=== PATIENT | male | born 1945 | race Caucasian/White ===

== ENCOUNTER → 2016-07-05 | Outpatient (CLI) | payer OTHER ==
[~2016-07-05] MED LIST: GADOBUTROL 10 ML VIAL IVP ONE
--- NOTE | 2016-07-05 17:36 | MR ---
MRI of the Brain(Without and With Contrast) Contrast: 6.5 mL intravenous Gadavist without complication. History: Melanoma restaging, on therapy. Known brain metastases. Comparison: April 07, 2016 Technique: Sagittal and axial T1-weighted images. Axial fast T2 2nd echo, GRE, diffusion and FLAIR im ages. Postgadolinium sagittal, axial and coronal images. Findings: The bilateral cerebellar lesions are both smaller. Enhancement of the left cerebellar lesio n is now 4 x 4 mm compared to prior 14 x 7.6 mm. The right cerebellar lesion now measures 20 x 12 mm compared to prior 28 x 18 mm. The 2 left hemispheric lesions are smaller: the left frontal lesion cur rently measuring 5 mm compared to prior 14 mm and the left temporal lesion currently is not associate d with any residual enhancement. On SWI images it now measures 11 mm max compared to prior 13 mm max no new metastases are identified. There is no midline shift or hydrocephalus. Impression: Continued improvement.
== END ==
LOC: FIMAGING 15:36
PROVIDERS: ATTEND Internal Medicine Hematology & Oncology
DX: C43.9 Malignant melanoma of skin, unspecified (principal); C79.31 Secondary malignant neoplasm of brain
CPT/HCPCS: 70553; A9585

== ENCOUNTER → 2016-09-08 | Outpatient (CLI) | payer OTHER | LOC: FIMAGING 12:49 | PROVIDERS: ATTEND Internal Medicine Hematology & Oncology | DX: C79.31 Secondary malignant neoplasm of brain (principal); Z85.820 Personal history of malignant melanoma of skin; R63.4 Abnormal weight loss; R41.3 Other amnesia | CPT/HCPCS: 70553; A9585 ==

== ENCOUNTER 2016-10-22 19:55 | Inpatient (IN) | payer OTHER ==
[2016-10-22] MEDS ORDERED: NS 500 ML IV ONE (19:59)
--- NOTE | 2016-10-22 20:07 | EDPHY ---
H & P Time Seen by Provider: 10/22/16 19:59 HPI/ROS: HPI Weakness, cough. 70-year-old male by ambulance from home. Patient has a history of melanoma. He is currently undergoing radiation therapy for a lesion on his long, last week he received this Monday, Monday and Monday. He is also on chemotherapy. He has been on chemotherapy, Katruda, since January. Last dose was October 12. He reports increased weakness and cough throughout the day. His reports the cough started last night. She describes this is a wet cough. EMS states that he also has complained of a low-grade fever for the last 2 days. Patient's room air pulse oximetry per EMS was 90-92%. His reports that he usually ambulates well with a cane but has been so weak that he has been unable to get out of bed today. ROS: Constitutional: As above. Eyes: No discharge. No changes in vision. ENT: No sore throat. No nasal congestion or rhinorrhea. Respiratory: As above. No shortness of breath. Cardiac: No chest pain, no palpitations. Gastrointestinal: No abdominal pain, no vomiting, no diarrhea. Genitourinary: No hematuria. No dysuria or increased frequency with urination. Musculoskeletal: No back pain. No neck pain. No myalgias or arthralgias. Skin: No rashes. Neurological: No headache. No focal weakness or altered sensation. Past medical history: Melanoma, as above. His oncologist Dr. Guaman. Also includes type 2 diabetes, GI bleed, hypertension, bipolar. CABG 30 years ago. Social history: He lives at home with his . He also has extended family near by. His is on the way to the emergency department. No alcohol. No smoking. Physical Exam: General Appearance: Alert, frail in appearance. This patient is responding to questions appropriately and in full sentences. This patient appears generally well-hydrated and well-nourished. Eyes: Pupils equal and round no pallor or injection. No lid edema, erythema or injection. ENT, Mouth: Mucous membranes are moist. The pharyngeal tissues are unremarkable. No edema or swelling. No asymmetry suggestive of abscess. No erythema or exudates. Respiratory: There are no retractions, lungs are clear to auscultation anteriorly with good air movement bilaterally. No tachypnea Cardiovascular: Regular rate and rhythm. No murmur appreciated. Sternotomy scar. Gastrointestinal: Abdomen is soft and nontender, no masses, bowel sounds normal. No focal tenderness at McBurney's point. No Sanchez sign. Neurological: Motor sensory function is grossly intact. Cranial nerves are normal. Gait is normal. Skin: Warm and dry, no rashes. Musculoskeletal: Neck is supple and nontender. Extremities are symmetrical. All joints range without pain or impingement. Psychiatric: No agitation. No depression. Database: EKG: EKG time is 8:12 p.m.; EKG shows a narrow complex normal sinus rhythm with a ventricular rate of 97. 1st degree AV block. The QRS, QT intervals are within normal limits. QS waves in the anterior precordial leads. There are no ST-T wave changes indicative of ischemic or injury pattern. No evidence of right heart strain. Interpreted by me. Imaging: Chest x-ray AP portable; the cardiac mediastinal silhouette is unremarkable. Sternotomy wires noted. Possible developing left middle lobe infiltrate versus metastasis versus perihilar vasculature. No other acute cardiopulmonary disease process noted. Interpreted by me. Procedures: Emergency department course: IV placed. He was started on IV normal saline with 500 cc to be given over the next hour. He was placed on a hotel sales manager. He was placed on oxygen at 2 L by nasal cannula. Infectious/sepsis workup initiated. Patient re-evaluated at 8:45 p.m., after 500 cc fluid bolus. rn behavioral health shows a narrow complex sinus rhythm, ventricular rate of 92. Blood pressure 122/ 78. 8:55 p.m., spoke with on-call hospitalist, Dr. Melissa. Discussed starting cefepime in the emergency department. Dr. Melissa requested that he see the patient for antibiotics are started. Antibiotic administration will be deferred to Dr. Melissa. He accepts this patient for admission. Patient's remaining emergency department course under my care has been uneventful. Patient admitted to the hospitalist service in stable condition, 1 [place]. Results of diagnostic studies discussed with him and his . 9:00 p.m., spoke with Dr. Anabell Patrick, oncologist, patient is not neutropenic. She agrees with holding antibiotics for now. Differential Diagnosis: The differential diagnosis on this patient includes but is not limited to pneumonia, bronchitis, chemotherapeutic drug reaction, urinary tract infection. This represents a partial list of diagnoses considered. These considerations are based on history, physical exam, past history, reassessment and diagnostic testing. Smoking Status: Former smoker Constitutional: Initial Vital Signs Temperature (C) 37.9 C 10/22/16 19:55 Heart Rate 97 10/22/16 19:55 Respiratory Rate 20 10/22/16 19:55 Blood Pressure 123/74 H 10/22/16 19:55 O2 Sat (%) 92 10/22/16 19:55 O2 Delivery Mode Nasal Cannula O2 (L/minute) 2 Allergies/Adverse Reactions: No Known Allergies Allergy (Verified 12/16/15 11:40) Home Medications: Medication Instructions Recorded Carvedilol [Coreg (*)] 3.125 mg PO BIDMEAL 11/25/15 Escitalopram Oxalate [Lexapro 10 20 mg PO DAILY 11/25/15 MG] Fenofibrate [Lofibra] 160 mg PO DAILY 11/25/15 Ferrous Sulfate [Ferrous Sulf 325 325 mg PO TID 11/25/15 MG (*)] Lisinopril [Zestril 20 mg (*)] 20 mg PO DAILY 11/25/15 Alder Carbonate [Alder 150 mg PO HS 11/25/15 Carbonate Tab 300 mg (*)] Rosuvastatin Calcium [Crestor 40mg 40 mg PO DAILY 11/25/15 (*)] Saxagliptin HCl/Metformin HCl 2 each PO HS 11/25/15 [Kombiglyze Xr 2.5-1,000 mg Tab] Duloxetine HCl [Cymbalta] 20 mg PO HS 12/16/15 carBAMazepine [TEGretol (*)] 100 mg PO BID 12/16/15 Pantoprazole Sodium [Protonix 40mg 40 mg PO BID #120 tab 12/18/15 (*)] Janumet 50-1,000 mg Tablet 10/22/16 Keytruda 10/22/16 Medical Decision Making - Data Points Laboratory Results: Laboratory Results 10/22/16 20:10 10/22/16 20:10 10/22/16 10/22/16 10/22/16 20:10 20:10 20:10 WBC 7.39 10^3/uL 10^3/uL (3.80-9.50) RBC 3.58 10^6/uL L 10^6/uL (4.40-6.38) Hgb 11.2 g/dL L g/dL (13.7-17.5) Hct 35.1 % L % (40.0-51.0) MCV 98.0 fL fL (81.5-99.8) MCH 31.3 pg pg (27.9-34.1) MCHC 31.9 g/dL L g/dL (32.4-36.7) RDW 13.5 % % (11.5-15.2) Plt Count 139 10^3/uL L 10^3/uL (150-400) MPV 11.5 fL fL (8.7-11.7) Neut % (Auto) 85.4 % H % (39.3-74.2) Lymph % (Auto) 7.7 % L % (15.0-45.0) [place] % (Auto) 5.0 % % (4.5-13.0) Eos % (Auto) 0.7 % % (0.6-7.6) Baso % (Auto) 0.4 % % (0.3-1.7) Nucleat RBC Rel Count 0.0 % % (0.0-0.2) Absolute Neuts (auto) 6.31 10^3/uL 10^3/uL (1.70-6.50) Absolute Lymphs (auto) 0.57 10^3/uL L 10^3/uL (1.00-3.00) Absolute Monos (auto) 0.37 10^3/uL 10^3/uL (0.30-0.80) Absolute Eos (auto) 0.05 10^3/uL 10^3/uL (0.03-0.40) Absolute Basos (auto) 0.03 10^3/uL 10^3/uL (0.02-0.10) Absolute Nucleated RBC 0.00 10^3/uL 10^3/uL (0-0.01) Immature Gran % 0.8 % % (0.0-1.1) Immature Gran # 0.06 10^3/uL 10^3/uL (0.00-0.10) PT INR APTT VBG Lactic Acid 1.8 mmol/L mmol/L (0.7-2.1) Sodium 140 mEq/L mEq/L (134-144) Potassium 4.4 mEq/L mEq/L (3.5-5.2) Chloride 106 mEq/L mEq/L (97-110) Carbon Dioxide 21 mEq/l L mEq/l (22-31) Anion Gap 13 mEq/L mEq/L (8-16) BUN 15 mg/dL mg/dL (7-23) Creatinine 0.8 mg/dL mg/dL (0.7-1.3) Estimated GFR > 60 Glucose 97 mg/dL mg/dL (70-100) Calcium 9.5 mg/dL mg/dL (8.5-10.4) Total Bilirubin 0.8 mg/dL mg/dL (0.1-1.4) Conjugated Bilirubin 0.4 mg/dL mg/dL (0.0-0.5) Unconjugated Bilirubin 0.4 mg/dL mg/dL (0.0-1.1) AST 30 IU/L IU/L (17-59) ALT 44 IU/L IU/L (21-72) Alkaline Phosphatase 51 IU/L IU/L (38-126) Troponin I < 0.012 ng/mL ng/mL (0-0.034) NT-Pro-B Natriuret Pep 1000 pg/mL H pg/mL (0-125) Total Protein 6.8 g/dL g/dL (6.3-8.2) Albumin 4.2 g/dL g/dL (3.5-5.0) 10/22/16 20:10 WBC RBC Hgb Hct MCV MCH MCHC RDW Plt Count MPV Neut % (Auto) Lymph % (Auto) Jerauld % (Auto) Eos % (Auto) Baso % (Auto) Nucleat RBC Rel Count Absolute Neuts (auto) Absolute Lymphs (auto) Absolute Monos (auto) Absolute Eos (auto) Absolute Basos (auto) Absolute Nucleated RBC Immature Gran % Immature Gran # PT 15.7 SEC H SEC (12.0-15.0) INR 1.25 H (0.83-1.16) APTT 30.0 SEC SEC (23.0-38.0) VBG Lactic Acid Sodium Potassium Chloride Carbon Dioxide Anion Gap BUN Creatinine Estimated GFR Glucose Calcium Total Bilirubin Conjugated Bilirubin Unconjugated Bilirubin AST ALT Alkaline Phosphatase Troponin I NT-Pro-B Natriuret Pep Total Protein Albumin Medications Given: Discontinued Medications Sodium Chloride (Ns) 500 mls @ 0 mls/hr IV ONCE ONE PRN Reason: Wide Open Stop: 10/22/16 20:00 Last Admin: 10/22/16 20:21 Dose: 500 mls Departure - Departure Disposition: [facility] Inpatient Acute Clinical Impression: Generalized weakness, History of multiple myeloma, Fever, Bronchitis Referrals: Patient,NotPresent [Unknown] - As per Instructions
--- NOTE | 2016-10-22 20:16 | CPEKG ---
Heart Rate: 97 RR Interval: 619 P-R Interval: 228 QRSD Interval: 90 QT Interval: 348 QTC Interval: 442 P [place]: 63 QRS [place]: -2 T Wave [place]: 99 EKG Severity - ABNORMAL ECG - EKG Impression: SINUS RHYTHM EKG Impression: FIRST DEGREE AV BLOCK EKG Impression: ANTERIOR INFARCT, AGE INDETERMINATE Electronically Signed By: Keyon Atkinson 22-Oct-2016 20:47:27
[2016-10-22 20:31] LABS: % IMMATURE GRANULYOCYTES 0.8 % (0.0-1.1); ABSOLUTE IMMATURE GRANULOCYTES 0.06 10^3/uL (0.00-0.10); ADD DIFF? NO; ADD MORPH? NO; ADD SCAN? NO; ATYPICAL LYMPHOCYTE FLAG 0 (0-99); FRAGMENT RBC FLAG 0 (0-99); HEMATOCRIT 35.1 % (40.0-51.0); HEMOGLOBIN 11.2 g/dL (13.7-17.5); LEFT SHIFT FLG 10 (0-99); LIPEMIA HEMOLYSIS FLAG 80 (0-99); MEAN CELL HEMOGLOBIN 31.3 pg (27.9-34.1); MEAN CELL HEMOGLOBIN CONCENTR. 31.9 g/dL (32.4-36.7); MEAN PLATELET VOLUME 11.5 fL (8.7-11.7); PLATELET CLUMPS FLAG 0 (0-99); PLATELET COUNT 139 10^3/uL (150-400); RED BLOOD CELL COUNT 3.58 10^6/uL (4.40-6.38); RED CELL DISTRIBUTION WIDTH 13.5 % (11.5-15.2)
[2016-10-22 20:41] LABS: INR 1.25 (0.83-1.16); PROTIME(PATIENT) 15.7 SEC (12.0-15.0)
[2016-10-22 20:42] LABS: ALANINE AMINOTRANSFERASE 44 IU/L (21-72); ALBUMIN 4.2 g/dL (3.5-5.0); ALKALINE PHOSPHATASE 51 IU/L (38-126); ANION GAP 13 mEq/L (8-16); ASPARTATE AMINOTRANSFERASE 30 IU/L (17-59); BILIRUBIN,TOTAL 0.8 mg/dL (0.1-1.4); BILIRUBIN-CONJUGATED 0.4 mg/dL (0.0-0.5); BILIRUBIN-UNCONJUGATED 0.4 mg/dL (0.0-1.1); CALCIUM 9.5 mg/dL (8.5-10.4); CARBON DIOXIDE 21 mEq/l (22-31); CHLORIDE 106 mEq/L (97-110); CREATININE 0.8 mg/dL (0.7-1.3); GLOMERULAR FILTRATION RATE > 60; GLUCOSE 97 mg/dL (70-100); POTASSIUM 4.4 mEq/L (3.5-5.2); SODIUM 140 mEq/L (134-144); TOTAL PROTEIN 6.8 g/dL (6.3-8.2)
[2016-10-22 20:54] LABS: TROPONIN I < 0.012 ng/mL (0-0.034)
[2016-10-22] MEDS ORDERED: ONDANSETRON 4 MG/2 ML VIAL IVP PRN (21:29)
[2016-10-22 21:46] LABS: LITHIUM 0.7 mEq/L (0.6-1.2)
--- NOTE | 2016-10-22 22:00 | GHP ---
[f rep st] HISTORY AND PHYSICAL DATE OF ADMISSION: 10/22/2016 CHIEF COMPLAINT: Weakness. HISTORY OF PRESENT ILLNESS: This 70-year-old male with history of metastatic melanoma on Keytruda presents to the hospital with weakness. The patient has had gradual progressive weakness since January when he began Keytruda for treatment of his metastatic melanoma that was diagnosed in November 2015 after he presented with a GI bleed. I should also note that he has been receiving radiation therapy to lung metastasis. He had radiation on Monday, , and Monday of this past week. On Monday, his tells me he developed some nasal congestion, as well as a nonproductive cough. Since these symptoms began on Monday, he has had worsening weakness to the point where he was unable to get out of bed this afternoon and was found to have a temperature 100.1. He has not been eating much over the past few months. He also does not drink much water. PAST MEDICAL HISTORY: 1. GI bleed. 2. Bipolar disorder. 3. Coronary artery disease, status post IL with 2-vessel CABG. 4. Hypertension. 5. Diabetes. HOME MEDICATIONS: Reviewed. Refer to [facility] for details. ALLERGIES: No known drug allergies. SOCIAL HISTORY: He lives with his in [place]. He is not currently drinking. He denies any tobacco or illicit drug use. FAMILY HISTORY: Reviewed and noncontributory. REVIEW OF SYSTEMS: Comprehensive 10-point review of systems was done and is negative, except for as mentioned in the HPI. PHYSICAL EXAMINATION: VITAL SIGNS: Blood pressure 117/66, pulse of 90, respiratory rate 14, O2 sat 98% on 2 L, temperature afebrile. GENERAL: Ill- appearing, in no acute distress. HEAD: Normocephalic, atraumatic. EYES: PERRLA. MOUTH: Dry oral mucosa. NECK: Supple. No lymphadenopathy. CARDIOVASCULAR: S1, S2, no JVD. No lower extremity edema. PULMONARY: Lungs are clear. No wheezes, rales, or rhonchi. ABDOMEN: Soft, nontender, nondistended. No guarding or rebound tenderness. Normoactive bowel sounds. EXTREMITIES: No clubbing or cyanosis. NEURO: Cranial nerves 2-12 grossly intact. No focal motor or sensory deficits. SKIN: Clear. There is a scabbed- over papule superior to the right clavicle at the base of the neck. DIAGNOSTICS: WBC 7.39, hemoglobin 11.2, hematocrit 35.1, platelets 139. INR 1.25. Venous lactic acid 1.8. Sodium 140, potassium 4.4, chloride 106, CO2 of 21, BUN 15, creatinine 0.8, glucose 97. BNP elevated at 1000. Troponin less than 0.012. Chest x-ray, which I visualized and personally interpreted, shows stable left lung metastases, no signs of pneumonia. EKG, which I also visualized and personally interpreted, shows sinus rhythm, rate 97 beats per minute, with a 1st-degree AV block. There are Q-waves in V 1 through V4. I also reviewed EKG done in November of 2015, where there are Q-waves in the V1. ASSESSMENT/PLAN: This is a 70-year-old male, currently undergoing treatment for metastatic melanoma with pembrolizumab, presenting with: 1. Weakness that is likely multifactorial in the setting of: (see below). 2. Acute viral illness. 3. Suspected dehydration and poor nutrition. 4. Elevated BNP with history of coronary artery disease. 5. History of bipolar depression. PLAN: 1. Admit to inpatient status. 2. IV fluids. 3. Echocardiogram. 4. Send influenza PCR. 5. Will send a cortisol level since pembrolizumab is associated with adrenal insufficiency. 6. Dr. Patrick, who is on-call for Oncology, is aware of the patient's admission and will plan to see him in the morning. 7. The patient is high risk for VTE since he is relatively bed-bound and has active malignancy. I will order [id number] heparin for DVT prophylaxis. 8. The patient is on lithium as a mood stabilizer. We will check a lithium level as well as a TSH. /[id number]/MODL and [id number]/MODL. MTDD
[2016-10-22] MEDS: D5W 1/2 NS W/ 20 KCl/L 1,000 ML IV SCH (22:51)
[2016-10-22] MEDS: ACETAMINOPHEN 325 MG TAB PO PRN (22:59)
[2016-10-22] MEDS: guaiFENesin 600 MG TAB.ER PO PRN (22:59)
[2016-10-22 23:25] LABS: BACTERIA TRACE /hpf (NONE SEEN); COLOR YELLOW; LEUKOCYTE ESTERASE,URINE 2+ (NEGATIVE); NITRITE,URINE POSITIVE (NEGATIVE); WBC,URINE 25-50 /hpf (0-3)
[2016-10-23] MEDS: D5W 1/2 NS W/ 20 KCl/L 1,000 ML IV SCH (07:32)
[2016-10-23] MEDS ORDERED: NON-FORMULARY NEW DRUG (Escitalopram Oxalate [Lexapro] 20 MG) PO SCH (09:00)
[2016-10-23] MEDS ORDERED: ONDANSETRON 4 MG/2 ML VIAL IVP PRN (09:55)
[2016-10-23] MEDS: guaiFENesin 600 MG TAB.ER PO PRN (11:25)
[2016-10-23] MEDS: DULoxetine 60 MG CAP PO SCH (11:25)
[2016-10-23] MEDS: ENOXAPARIN 40 MG/0.4 ML SYR SC SCH (11:26)
[2016-10-23] MEDS: ESCITALOPRAM OXALATE 10 MG TAB PO SCH (11:29)
--- NOTE | 2016-10-23 12:07 | HOSPPROG ---
Hospitalist Progress Note Assessment/Plan: Weakness - Query viral URI vs UTI vs chemo side effect such as adrenal insufficiency vs ACS. He has a wet cough, though chest xray clear, no PNA. UA suspicious for infection and with fever and urinary frequency, reasonable to treat while awaiting culture data (urine culture sent). -IV Ceftriaxone while awaiting culture data -Cont PT/OT -Cortisol sent -Viral respiratory culture CAD with prior UT s/p CABG and abnormal echo - He has not had CP. Reviewed echo report: anterior, anteroseptal segments and apex are akinetic. EF 35-40%, though was 30-35% in 2014. Initial trop neg. EKG shows Q waves in anterior leads. -send 2nd trop to r/o a coronary event as cause of his acute weakness Volume depletion - stopping IVF's given low EF and stable hemodynamics Metastatic melanoma - on Keytruda, oncology aware of admission DM - cont oral meds Hypertension - bp's on the low side, holding anti-hypertensives for now Full code Dispo - cont inpt Subjective: Pt feels better. reports he was unable to stand yesterday. He ambulated to here, though still quite weak. Developed fever with rigors today. Endorses urinary frequency, no dysuria. He denies CP or SOB. Objective: Vital Signs Temp Pulse Resp BP Pulse Ox 36.8 C 72 16 98/62 L 96 10/23/16 11:20 10/23/16 11:20 10/23/16 11:20 10/23/16 11:20 10/23/16 11:20 10/22/16 10/23/16 10/24/16 05:59 05:59 05:59 Intake Total 1250 Output Total 625 275 Balance 625 -275 PT 15.7 SEC (12.0-15.0) H 10/22/16 20:10 INR 1.25 (0.83-1.16) H 10/22/16 20:10 - Physical Exam Constitutional: no apparent distress Eyes: PERRL Ears, Nose, Mouth, Throat: moist mucous membranes Cardiovascular: regular rate and rhythym, no murmur, rub, or gallop Respiratory: no respiratory distress, clear to auscultation Gastrointestinal: normoactive bowel sounds, soft, non-tender abdomen Skin: warm Musculoskeletal: generalized weakness Neurologic: AAOx3 Psychiatric: interacting appropriately ICD10 Worksheet Patient Problems: Problems Problem Status Onset Bronchitis Acute Fever Acute Generalized weakness Acute History of multiple myeloma Acute GI bleed Acute Severe anemia Acute
[2016-10-23] MEDS ORDERED: MEPERIDINE 25 MG/ML SYR IVP PRN (14:15)
[2016-10-23] MEDS: ACETAMINOPHEN 325 MG TAB PO PRN (14:17)
[2016-10-23 14:43] LABS: % IMMATURE GRANULYOCYTES 0.8 % (0.0-1.1); ABSOLUTE IMMATURE GRANULOCYTES 0.05 10^3/uL (0.00-0.10); ADD DIFF? NO; ADD MORPH? NO; ADD SCAN? NO; ATYPICAL LYMPHOCYTE FLAG 0 (0-99); FRAGMENT RBC FLAG 0 (0-99); HEMATOCRIT 32.8 % (40.0-51.0); HEMOGLOBIN 10.4 g/dL (13.7-17.5); LEFT SHIFT FLG 10 (0-99); LIPEMIA HEMOLYSIS FLAG 80 (0-99); MEAN CELL HEMOGLOBIN 31.6 pg (27.9-34.1); MEAN CELL HEMOGLOBIN CONCENTR. 31.7 g/dL (32.4-36.7); MEAN CELL VOLUME 99.7 fL (81.5-99.8); MEAN PLATELET VOLUME 11.2 fL (8.7-11.7); PLATELET CLUMPS FLAG 0 (0-99); PLATELET COUNT 124 10^3/uL (150-400); RED BLOOD CELL COUNT 3.29 10^6/uL (4.40-6.38); RED CELL DISTRIBUTION WIDTH 13.6 % (11.5-15.2)
[2016-10-23 14:56] LABS: ANION GAP 11 mEq/L (8-16); CALCIUM 8.8 mg/dL (8.5-10.4); CARBON DIOXIDE 21 mEq/l (22-31); CHLORIDE 106 mEq/L (97-110); CREATININE 0.7 mg/dL (0.7-1.3); GLOMERULAR FILTRATION RATE > 60; GLUCOSE 128 mg/dL (70-100); SODIUM 138 mEq/L (134-144)
--- NOTE | 2016-10-23 17:46 | ECHO ---
[id number] + + [address] : : [place] [address] : : [phone] + + Adult Echocardiographic Report + --------+ :Name: JOSE ROBB RStudy Date: 10/23/2016 04:06 PM : : Hospital Admission Number: [id number] Locat ion: 148: :: 1945 Gender: Male Height: 68 in : :Age: 70 yrs Race: WH Weight: 140 l b : :Reason For Study: Eval LV Fx : : BSA: 1.8 mete rs2 : :History: Multiple myloma, Chemo, Fever, CABG 1997, Elevated BNP : + --------+ MMode/2D Measurements \T\ Calculations IVSd: 0.87 cm LVIDd: 4.5 cm FS: 23.0 % Ao root diam: LVPWd: 1.1 cm LVIDs: 3.5 cm EDV(Teich): 2.9 cm 91.5 ml ACS: 1.5 cm ESV(Teich): 49.1 ml EF(Teich): 46.3 % LVLd ap4: 8.3 cm SV(MOD-sp4): EDV(MOD-sp4): 47.0 ml 108.0 ml LVLs ap4: 7.7 cm ESV(MOD-sp4): 61.0 ml EF(MOD-sp4): 43.5 % Normal Measurement Values: + + :LVIDd (3.5-5.7cm) IVSd (0.6-1.1cm) LVPWd (0.6-1.1cm) Aortic Root (2.0-3.7cm)Left Atrium (1.5-4.0cm): :LV Vol(d) (76-115ml) LV Vol(s) (29-48ml) Ejec Fraction (50-65%)PV Joseph (0.6- 1.2m/s) TV Joseph (0.4-1.0m/s) : :MV E Joseph (0.8-1.0m/s)MV A Joseph (0.3-1.0m/s)LVOT Joseph (0.7-1.2m/s) Asc Ao Joseph ( 0.9-1.8m/s) : + + Doppler Measurements \T\ Calculations MV E max joseph: 58.2 cm/sec Ao V2 max: 107.0 cm/sec LV V1 max: 61.2 cm/sec MV A max joseph: 72.6 cm/sec Ao max P.6 mmHg LV V1 max P.5 mmHg MV E/A: 0.80 Left Ventricle The left ventricle is normal in size. There is normal left ventricular wall thickness. Ejection Fraction = 35 to 40%. The mid and distal anterior and anteroseptal segments are akinetic. The apex is akinetic. There is Doppler evidence for diastolic dysfunction. Atria The left atrial size is normal. Right atrial size is normal. Mitral Valve The mitral valve is grossly normal in structure and function. There is no evidence of mitral valve prolapse. There is no mitral valve stenosis. There is no mitral regurgitation noted. Tricuspid Valve The tricuspid valve is not well visualized. Aortic Valve The aortic valve is not well visualized. There is no aortic stenosis. There is no aortic insufficiency. Pulmonic Valve The pulmonic valve is not well visualized. Great Vessels The aortic root is normal size. Pericardium/Pleural There is no pericardial effusion. Conclusion A complete two-dimensional transthoracic echocardiogram was performed (2D, M-mode, Doppler and color flow Doppler). 1. This is a technically limited study. 2. The left ventricle is normal in size. The mid and distal anterior and anteroseptal segments are akinetic. The apex is akinetic. The Ejection Fraction = 35 to 40%. 3. The mitral valve is grossly normal in structure and function. 4. The aortic valve is not well visualized. There is no aortic stenosis or insufficiency by doppler. 5. There is no pericardial effusion. 6. No old studies for direct comparison. The LVEF was 30 to 35% on DSE at [facility] on 10/23/13. Final Reading Physician: Johnathan Soriano MD electronically signed on 10/23/2016 05:44 PM Ordering Physician: Milan Melissa Performed By: Romero Foster, [facility]
[2016-10-23] MEDS ORDERED: SITAGLIPTIN PHOS PO SCH (18:00)
[2016-10-23] MEDS ORDERED: metFORMIN HCL 500 MG TAB PO SCH (18:00)
[2016-10-23] MEDS ORDERED: [UNRECOGNIZED DRUG - OTHER] PO SCH (18:00)
[2016-10-23] MEDS ORDERED: METFORMIN HCL PO SCH (18:00)
[2016-10-23] MEDS: metFORMIN HCL 500 MG TAB PO SCH (18:20)
--- NOTE | 2016-10-23 19:12 | GCON ---
[f rep st] CONSULTATION ONCOLOGY CONSULTATION DATE OF CONSULTATION: 10/23/2016 REASON FOR CONSULTATION: Metastatic melanoma, generalized weakness. HISTORY OF PRESENT ILLNESS: The patient is a 70-year-old gentleman with metastatic melanoma. His called yesterday reporting he had a "bad cold" for a few days with nasal congestion, sore throat, and cough. He had no fever, chills, chest pain, shortness of breath, hemoptysis. Symptomatic care was discussed. She called again last evening as the patient had become very weak and was unable to get out of bed, causing him to be incontinent of urine. Evaluation on admission demonstrated an essentially normal chest x-ray with the exception of a known stable left lung metastasis. He was afebrile and was hemodynamically stable. UA was nitrite positive, 2+ leukocyte esterase, 25 to 50 white cells. Urine culture not performed. Flu swab negative. He was not placed on antibiotics. He recently completed stereotactic radiation to the left lower lobe metastasis. He tolerated that without problems. He has had long-standing fatigue. He has been on pembrolizumab (Keytruda) since 01/21/16, and received his most recent dose 10/12/16. PAST MEDICAL HISTORY: 1. Diagnosed 11/2015 with metastatic melanoma. BRAF wild-type, PD-L1 positive. He has received whole brain radiation. He began pembrolizumab 2015. 2. Coronary artery disease, history of MT. 3. Type 2 diabetes. 4. Hypertension. 5. Bipolar disorder. 6. Dyslipidemia. 7. History of basal cell carcinomas. PAST SURGICAL HISTORY: 1. CABG in 1996. 2. Cholecystectomy in 1987. OUTPATIENT MEDICATIONS: 1. Carbamazepine 100 mg b.i.d. 2. Duloxetine 20 mg b.i.d. 3. Escitalopram 20 mg daily. 4. Janumet 50/500 mg b.i.d. 5. [place] 300 mg daily. 6. Rosuvastatin 40 mg daily. ALLERGIES: No known drug allergies. SOCIAL HISTORY: He is and lives with his in [place]. Former smoker, quit in 1972. 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 REVIEW OF SYSTEMS: CONSTITUTIONAL: Per HPI. No fevers, chills. HEENT: He is very hard of hearing and wears hearing aide. URI symptoms as above. CARDIOVASCULAR: No chest pain, palpitations. RESPIRATORY: Cough as above. No pleurisy, hemoptysis, dyspnea. GASTROINTESTINAL: No abdominal pain, nausea , vomiting, diarrhea. GENITOURINARY: No hematuria, dysuria. One episode of urinary incontinence as above. MUSCULOSKELETAL: No new bony complaints. NEUROLOGIC: His has noticed an intention tremor since last fall. It has become significantly worse over the last couple of days. PHYSICAL EXAMINATION: VITAL SIGNS: Blood pressure 113/70, heart rate 94, respirations 20, oxygen saturation 96% on 2 L. He did have a fever this morning to 39.1, current temperature of 36.8. GENERAL: Very hard of hearing as he is not wearing his hearing aides. Alert and oriented. CARDIOVASCULAR: Regular rate and rhythm. No pretibial edema. LUNGS: Clear to auscultation. He does have a productive cough. ABDOMEN: Positive bowel sounds, soft, nontender. NEUROLOGIC: Intention tremor without resting tremor. LABORATORY STUDIES: Yesterday, WBCs 7.4, 85% neutrophils, hemoglobin of 11.2, platelets 139,000. Normal CMP. UA as above. Venous lactate on admission 1.8. [place] level 0.7. Chest x-ray: Per HPI. IMPRESSION: 1. Generalized weakness: This was thought to possibly be related to a viral upper respiratory illness; however, given his abnormal urinalysis and fever this morning, urinary tract infection seems most likely. Culture pending. He has been started on antibiotics. Pembrolizumab can be associated with adrenal insufficiency, although he is not hypotensive, and sodium and potassium are normal. Random cortisol will be checked. 2. Urinary tract infection as above. 3. Metastatic melanoma: He recently completed stereotactic radiation to the left lung metastasis which would not be expected to have significant systemic side effects. Most recent pembrolizumab 10/12/16. 4. Intention tremor: this may be worsened acutely by his weakness and current illness. Neurology consultation may be appropriate for consideration of Parkinson's. ADDENDUM: Random cortisol 16.7. Given the lack of hypotension, hyponatremia, hyperkalemia, a stim test does not seem warranted. /[id number]/MODL MTDD
[2016-10-23] MEDS ORDERED: guaiFENesin 200 MG/10 ML UDL PO PRN (20:29)
[2016-10-23] MEDS: LITHIUM CARBONATE 300 MG TAB PO SCH (21:22)
[2016-10-23 22:23] LABS: COLOR YELLOW; LEUKOCYTE ESTERASE,URINE 3+ (NEGATIVE); NITRITE,URINE NEGATIVE (NEGATIVE)
[2016-10-23 22:28] LABS: BACTERIA TRACE /hpf (NONE SEEN); MUCUS TRACE /lpf (NONE-1+); WBC,URINE 50-182 /hpf (0-3)
[2016-10-23] MEDS: clonazePAM 0.5 MG TAB PO PRN (23:20)
[2016-10-24] MEDS: metFORMIN HCL 500 MG TAB PO SCH ×2 (09:40→18:42)
[2016-10-24] MEDS: DULoxetine 60 MG CAP PO SCH (09:40)
[2016-10-24] MEDS: ESCITALOPRAM OXALATE 10 MG TAB PO SCH (09:40)
[2016-10-24] MEDS: ENOXAPARIN 40 MG/0.4 ML SYR SC SCH (09:41)
--- NOTE | 2016-10-24 13:43 | SOAPPROG ---
SOAP Progress Note Assessment/Plan: A/P: * Generalized weakness: due to UTI. Improving on abx. * UTI: susceptibilities pending. * Cough: viral URI. Neg CXR. * Metastatic melanoma: due for next pembrolizumab 11/02. 10/24/16 13:43 Subjective: Much better today per pt and . Stronger, steadier on feet, no confusion, tremor improved back to baseline. O: AF. Gen: A&O, NAD. CV: no edema. Lungs: breathing comfortably. Abd: soft, NT. Microbiology 10/23/16 Unknown Urine,Clean Catch Urine Culture - Preliminary Staphylococcus Epidermidis Objective: Vital Signs Temp Pulse Resp BP Pulse Ox 36.7 C 72 18 100/60 98 10/24/16 12:55 10/24/16 12:55 10/24/16 12:55 10/24/16 12:55 10/24/16 12:55 Laboratory Results 10/23/16 14:39 10/23/16 14:39 10/23/16 10/24/16 10/25/16 05:59 05:59 05:59 Intake Total 1250 700 Output Total 625 750 100 Balance 625 -50 -100 PT 15.7 SEC (12.0-15.0) H 10/22/16 20:10 INR 1.25 (0.83-1.16) H 10/22/16 20:10 ICD10 Worksheet Patient Problems: Problems Problem Status Onset Bronchitis Acute Fever Acute Generalized weakness Acute History of multiple myeloma Acute GI bleed Acute Severe anemia Acute
--- NOTE | 2016-10-24 14:32 | HOSPPROG ---
Hospitalist Progress Note Assessment/Plan: Weakness - Likely secondary to UTI, UCx growing staph epi, sensitivities pending. Cortisol nl. -Cont Ceftriaxone -Cont PT/OT -Viral respiratory culture pending CAD with prior [place] s/p CABG and abnormal echo - He has not had CP. Reviewed echo report: anterior, anteroseptal segments and apex are akinetic. EF 35-40%, though was 30-35% in 2014. Trop neg x2. EKG shows Q waves in anterior leads. Volume depletion - stopping IVF's given low EF and stable hemodynamics Metastatic melanoma - on Keytruda, oncology aware of admission DM - cont oral meds Hypertension - bp's on the low side, holding anti-hypertensives for now Full code Dispo - cont inpt Subjective: Pt feels much better. STrength improved. He is ambulating. No fevers. No N/V. Appetite good. Objective: Vital Signs Temp Pulse Resp BP Pulse Ox 36.7 C 72 18 100/60 98 10/24/16 12:55 10/24/16 12:55 10/24/16 12:55 10/24/16 12:55 10/24/16 12:55 Laboratory Results 10/23/16 14:39 10/23/16 14:39 10/23/16 10/24/16 10/25/16 05:59 05:59 05:59 Intake Total 1250 700 Output Total 625 750 100 Balance 625 -50 -100 PT 15.7 SEC (12.0-15.0) H 10/22/16 20:10 INR 1.25 (0.83-1.16) H 10/22/16 20:10 - Physical Exam Constitutional: no apparent distress Eyes: PERRL Ears, Nose, Mouth, Throat: moist mucous membranes Cardiovascular: regular rate and rhythym Respiratory: no respiratory distress, clear to auscultation Gastrointestinal: normoactive bowel sounds, soft, non-tender abdomen Skin: warm Musculoskeletal: full muscle strength Neurologic: AAOx3 Psychiatric: interacting appropriately ICD10 Worksheet Patient Problems: Problems Problem Status Onset Bronchitis Acute Fever Acute Generalized weakness Acute History of multiple myeloma Acute GI bleed Acute Severe anemia Acute
[2016-10-24] MEDS: clonazePAM 0.5 MG TAB PO PRN (20:43)
[2016-10-24] MEDS: LITHIUM CARBONATE 300 MG TAB PO SCH (20:43)
[2016-10-25 04:17] LABS: HEMATOCRIT 32.6 % (40.0-51.0); HEMOGLOBIN 10.1 g/dL (13.7-17.5); MEAN CELL HEMOGLOBIN 30.7 pg (27.9-34.1); MEAN CELL VOLUME 99.1 fL (81.5-99.8); RED BLOOD CELL COUNT 3.29 10^6/uL (4.40-6.38); RED CELL DISTRIBUTION WIDTH 13.7 % (11.5-15.2)
[2016-10-25] MEDS: metFORMIN HCL 500 MG TAB PO SCH ×2 (10:06→18:27)
[2016-10-25] MEDS: ENOXAPARIN 40 MG/0.4 ML SYR SC SCH (10:07)
[2016-10-25] MEDS: ESCITALOPRAM OXALATE 10 MG TAB PO SCH (10:07)
[2016-10-25] MEDS: DULoxetine 60 MG CAP PO SCH (10:07)
--- NOTE | 2016-10-25 11:18 | SOAPPROG ---
SOAP Progress Note Assessment/Plan: Assessment: 1.) URI- improved/on Ceftriaxone 2.) UTI- S. epi 3.) Metastatic Melanoma- on Q 14 day Pembrolizumab/Keytruda, next dose on . 4.) DM 5.) Hx. of CAD 6.) Vol. depletion 7.) Hx. of HTN. 8.) Discharge planning: perhaps will need short Rehab stay or short SNF if not strong enough to get home soon. Plan: See above discussion. 10/25/16 11:18 Subjective: Cough getting better, no new symptoms,but still quite weak. Objective: As noted here, VSS, Afebrile HEENT- NC/AT, no oral lesions, anicteric Neck- supple Chest- scattered upper airway rhonchi CVS- RSR, no extra HS ABD- soft, NT, no mass or HSM EXT- skin intact, minimal edema Labs as noted here/ Urine Cx + S. epi. Resp. Cx is pending. Vital Signs Temp Pulse Resp BP Pulse Ox 36.4 C 66 18 106/69 97 10/25/16 08:25 10/25/16 08:25 10/25/16 08:25 10/25/16 08:25 10/25/16 08:25 Laboratory Results 10/25/16 04:06 10/23/16 14:39 10/24/16 10/25/16 10/26/16 05:59 05:59 05:59 Intake Total 700 150 Output Total 750 100 Balance -50 50 PT 15.7 SEC (12.0-15.0) H 10/22/16 20:10 INR 1.25 (0.83-1.16) H 10/22/16 20:10 ICD10 Worksheet Patient Problems: Problems Problem Status Onset Bronchitis Acute Fever Acute Generalized weakness Acute History of multiple myeloma Acute GI bleed Acute Severe anemia Acute
--- NOTE | 2016-10-25 13:08 | WOCRNPDOC ---
MALIN[facility] Advanced Assessment Note - Skin Integrity Problem, Advanced Assess Coccyx Dressing Type: Allevyn Life Dressing Description: Clean/Dry, Intact Exudate Amount: None Integumentary Issue Intervention: Visualized Under Dressing Corinna Wound Tissue: Macerated, Intact Corinna Wound Swelling: None Wound Edges: Scarred Site Odor: None Site Measurement - Head-to-Toe Length X Width X Depth (cm): 1.2 x 1 x 0 Skin Integrity Problem Comment: Pale, moist, intact cheloid-appearing scar tissue is present at coccyx. reports that patient has a history of surgical removal of a "cyst" at this location. Slightly moist surface appears to be due to its location proximal to the intergluteal cleft. Discussed combination of factors (i.e. moisture, prior tissue compromise; reduced patient activity, compromised health) =increase risk for skin breakdown with patient and , and ISAIAS Gant. Educated about preventative care measures and provided with moisture barrier cream. Positioned patient onto right side; provided ISAIAS Gant with report and skin prep to apply to coccyx, under sacrum dressing.
--- NOTE | 2016-10-25 15:09 | HOSPPROG ---
Hospitalist Progress Note Assessment/Plan: Weakness - Likely secondary to UTI, UCx growing >100K staph epi, sensitivities pending. Cortisol nl. -Cont Ceftriaxone, tailor tomorrow based on sensitivities -Cont PT/OT CAD with prior [place] s/p CABG and abnormal echo - He has not had CP. Reviewed echo report: anterior, anteroseptal segments and apex are akinetic. EF 35-40%, though was 30-35% in 2014. Trop neg x2. EKG shows Q waves in anterior leads. Overall stable, cont outpt meds. Volume depletion - stopping IVF's given low EF and stable hemodynamics Metastatic melanoma - on Keytruda, oncology aware of admission DM - cont oral meds Hypertension - bp's on the low side, holding anti-hypertensives for now Full code Dispo - cont inpt, possible dc to home tomorrow. SNF rehab was initially recommended, but mobility improving, f/u therapy recs. Subjective: Pt feeling much better. Still a bit weak. Taking po well. Still has a cough, but on room air. No fevers. Objective: Vital Signs Temp Pulse Resp BP Pulse Ox 36.6 C 69 18 105/72 92 10/25/16 11:44 10/25/16 11:44 10/25/16 11:44 10/25/16 11:44 10/25/16 11:44 Laboratory Results 10/25/16 04:06 10/23/16 14:39 10/24/16 10/25/16 10/26/16 05:59 05:59 05:59 Intake Total 700 150 Output Total 750 100 350 Balance -50 50 -350 PT 15.7 SEC (12.0-15.0) H 10/22/16 20:10 INR 1.25 (0.83-1.16) H 10/22/16 20:10 - Physical Exam Constitutional: no apparent distress Eyes: PERRL Ears, Nose, Mouth, Throat: moist mucous membranes Cardiovascular: regular rate and rhythym Respiratory: no respiratory distress, bronchial breath sounds Gastrointestinal: normoactive bowel sounds, soft, non-tender abdomen Skin: warm Musculoskeletal: full muscle strength Neurologic: AAOx3 Psychiatric: interacting appropriately ICD10 Worksheet Patient Problems: Problems Problem Status Onset Bronchitis Acute Fever Acute Generalized weakness Acute History of multiple myeloma Acute GI bleed Acute Severe anemia Acute
[2016-10-25] MEDS: LITHIUM CARBONATE 300 MG TAB PO SCH (20:30)
[2016-10-25] MEDS: clonazePAM 0.5 MG TAB PO PRN (20:30)
[2016-10-25 20:38] VITALS: RESP 16
[2016-10-26 08:45] VITALS: BP 112/67; PULSE 73; TEMP 97.4; O2SAT 91
[2016-10-26] MEDS: metFORMIN HCL 500 MG TAB PO SCH (10:00)
[2016-10-26] MEDS: ESCITALOPRAM OXALATE 10 MG TAB PO SCH (10:15)
[2016-10-26] MEDS: DULoxetine 60 MG CAP PO SCH (10:15)
[2016-10-26] MEDS: ENOXAPARIN 40 MG/0.4 ML SYR SC SCH (10:15)
[2016-10-26] MEDS: guaiFENesin 600 MG TAB.ER PO PRN (10:35)
--- NOTE | 2016-10-26 10:56 | PDDCSUM ---
Discharge Summary Discharge Summary: HPI AND HOSPITAL COURSE: This is a 70 yo male with metastatic melanoma who was admitted with generalized weakness and found to have a UTI. He was treated with IVF and Rocephin as well as PT with improvement of his symptoms. He feels better now. UCx was c/w Staph Epi with multiple IV's resistance. Given that he is clinically better on Rocephin and he wants to go home, I will discharge him on Omnicef to complete a 7 day course. We discussed options for SNF vs Rehab but at this time he wants to return home. Given that this strength has improved, he will be discharged home DDX: #Weakness - Likely secondary to UTI, UCx growing >100K staph epi -Cortisol nl. -Will start Omnicef for total of 7 days -Cont PT/OT #CAD with prior [place] s/p CABG and abnormal echo - He has not had CP. Reviewed echo report: anterior, anteroseptal segments and apex are akinetic. EF 35-40%, though was 30-35% in 2014. Trop neg x2. EKG shows Q waves in anterior leads. Overall stable, cont outpt meds. #Volume depletion - Now euvolemic Metastatic melanoma - on Keytruda, f/u with Oncology DM - cont oral meds Hypertension - bp's on the low side, holding anti-hypertensives for now Full code Exam: VSS NAD AAOX3 MMM NO JVD RRR CTA B S/NT/ND NO EDEMA MOOD APPROPRIATE MEDS: SEE med rec. Pertinent med is Omnicef. total time spent on discharge is 38 mins
--- NOTE | 2016-10-26 12:03 | PDIAF ---
- Diagnosis Diagnosis: Urinary Tract Infection Code Status: Full Code - Medication Management Discharge Medications: Medications to Continue on Transfer RX: DULoxetine [Cymbalta 60 MG (*)] 60 mg PO DAILY 10/22/16 [Last Taken 10/22/16 ] RX: Escitalopram Oxalate [Lexapro] 20 mg PO DAILY 10/22/16 [Last Taken Unknown] RX: [place] Carbonate [[place] Carbonate Tab 300 mg (*)] 600 mg PO HS 10/22/16 [ Last Taken 10/21/16] RX: Sitagliptin Phos/Metformin HCl [Janumet 50-1,000 mg Tablet] 1 each PO BIDMEAL 10/22/16 [Last Taken 10/22/16 09:00] RX: Vit C/Dl-E AC/Lut/Copper/Znox [Preservision Softgel] 1 each PO DAILY [Last Taken 10/22/16] RX: clonazePAM [Klonopin (*)] 0.5 - 1 mg PO HS PRN 10/22/16 [Last Taken Unknown] RX: Cefdinir [Omnicef (*)] 300 mg PO BID #6 cap 10/26/16 [Last Taken Unknown] Discharge Medications: Refer to the Discharge Home Medication list for PRN reason. - Orders Services needed: Home Care, Registered Nurse (please access coccygea wound), Physical Therapy, Occupational Therapy Home Care Face to Face: I certify that this patient was under my care and that I had the required [id number] encounter meeting the encounter requirements on the discharge day. My findings support the fact that the patient is homebound as defined in CMS Chapter 7 Medicare Benefits Manual 30.1.1, The condition of the patient is such that there exists a normal inability to leave home and consequently, leaving home would require a considerable and taxing effort. Diet Recommendation: no restrictions on diet Diet Texture: Regular Texture Diet - Follow Up Care Current Providers and Referrals: Patient,NotPresent [Unknown] - As per Instructions
[2016-10-26] MEDS ORDERED: CEFDINIR 300 MG CAP PO SCH (21:00)
== END 2016-10-26 13:42 | disposition home health service (06) | DRG 690 ==
LOC: EDUNIT# → F1N 21:48
PROVIDERS: ADMIT Family Medicine; ATTEND Family Medicine
DX: N39.0 Urinary tract infection, site not specified (principal); B95.7 Other staphylococcus as the cause of diseases classified elsewhere; C78.02 Secondary malignant neoplasm of left lung; I25.10 Atherosclerotic heart disease of native coronary artery without angina pectoris; E11.9 Type 2 diabetes mellitus without complications; I10 Essential (primary) hypertension; F31.9 Bipolar disorder, unspecified; E78.5 Hyperlipidemia, unspecified; I25.2 Old myocardial infarction; R25.1 Tremor, unspecified; Z85.820 Personal history of malignant melanoma of skin; Z95.0 Presence of cardiac pacemaker
CPT/HCPCS: 97116-GP; 97162-GP; 97166-GO; 97530-GP; 97535-GO; G8978-GP-CJ; G8979-GP-CI; G8987-GO-CL; G8988-GO-CJ; J0696; J1650; J2405

== ENCOUNTER → 2017-01-02 | Outpatient (CLI) | payer OTHER | LOC: FIMAGING 12:53 | PROVIDERS: ATTEND Internal Medicine Hematology & Oncology | DX: C79.31 Secondary malignant neoplasm of brain (principal) | CPT/HCPCS: 70553; A9585 ==